=== PATIENT | female | born 1985 | race Caucasian/White ===

== ENCOUNTER → 2016-12-30 | Outpatient (CLI) | payer OTHER | LOC: RAD 14:57 | DX: M54.5 Low back pain (principal); M25.552 Pain in left hip; M25.551 Pain in right hip ==

== ENCOUNTER → 2018-07-20 | Outpatient (CLI) | payer OTHER | LOC: SPEECH 08:32 → RAD 08:32 | DX: K21.9 Gastro-esophageal reflux disease without esophagitis (principal); F45.8 Other somatoform disorders ==

== ENCOUNTER → 2018-11-09 | Outpatient (CLI) | payer OTHER ==
[~2018-11-09] VITALS: Ht 170.2 cm; Wt 113.4 kg
[~2018-11-09] MED LIST: ATIVAN0.5 MG PO; CENTRUM SILVER1 EAC4 PO; FLONASE 0.05%50 MCG NASAL; NORCO 7.5-3251 EACH PO; OMEPRAZOLE40 MG PO; PHENTERMINE H37.5 M1 PO; TIZANIDINE HCL6 MG PO; WELLBUTRIN SR150 MG PO; ZYRTEC10 M5 PO
--- NOTE | 2018-11-11 16:06 | PATH ---
[facility] [address] [place] [address] PATHOLOGY RPT PROCEDURE Name: DWAINBRADY Room #: REG [facility].#: [id number] ������������������ Admission: 11/09/18 ������������������ Date of : 81 Discharge: Report #: [id number] Path Case #: [id number] [facility] Accession Number: [id number] . 01 Material submitted: . esophagus - BIOPSY ESOPHAGUS RULE OUT EOE . 01 Clinical history: . Dysphagia Vertical sleeve gastrectomy rule out EOE . 02 Diagnosis: Squamous mucosa, esophagus, rule out eosinophilic esophagitis, endoscopic biopsy: - Mild active esophagitis and changes compatible with reflux esophagitis. - No increase in intraepithelial eosinophils. - Negative for intestinal metaplasia or dysplasia. . (IUV:mml; 11/11/2018) QLM/11/11/2018 . 02 Electronically signed: . Britney Bo MD, Pathologist NPI- [id number] . 01 Gross description: . The specimen is received in formalin, labeled "Brady Montalvo, BX esophagus" and consists of multiple fragments of mcleod-lucas tissue measuring 0.8 x 0.7 x 0.3 cm in aggregate which are entirely submitted in A1. (SDY; 11/10/2018) SYU/SYU . 02 Pathologist provided ICD-10: K21.0 . 02 CPT . 713540 Specimen Comment: A courtesy copy of this report has been sent to Specimen Comment: [phone]. Specimen Comment: Report sent to Performed at: [address], [place], [place] [id number] MD Benjamin Quintanilla MD Phone: [phone] Performed at: [address] [id number] [address] [address] PATHOLOGY RPT PROCEDURE Name: BRADY MONTALVO Room #: REG CLFlorinda Almeida#: [id number] ������������������ Admission: 11/09/18 ������������������ Date of : 81 Discharge: Report #: [id number] Path Case #: [id number] MD Britney Bo MD Phone: [phone]
== END | disposition home or self-care (01) ==
LOC: GI 08:10
DX: K21.0 Gastro-esophageal reflux disease with esophagitis (principal); K44.9 Diaphragmatic hernia without obstruction or gangrene; Z98.84 Bariatric surgery status; F32.9 Major depressive disorder, single episode, unspecified; F41.9 Anxiety disorder, unspecified; F17.210 Nicotine dependence, cigarettes, uncomplicated; Z79.899 Other long term (current) drug therapy; Z98.890 Other specified postprocedural states; Z88.8 Allergy status to other drugs, medicaments and biological substances; Z79.891 Long term (current) use of opiate analgesic
CPT/HCPCS: 62110; 62900

== ENCOUNTER → 2019-02-25 | Outpatient (CLI) | payer OTHER | LOC: CAT 11:30 | DX: J34.2 Deviated nasal septum (principal); J34.3 Hypertrophy of nasal turbinates; J32.0 Chronic maxillary sinusitis; J32.2 Chronic ethmoidal sinusitis; J32.1 Chronic frontal sinusitis ==

== ENCOUNTER → 2019-04-28 | Outpatient (CLI) | payer OTHER | LOC: MRI 14:28 | DX: M48.061 Spinal stenosis, lumbar region without neurogenic claudication (principal); M12.88 Other specific arthropathies, not elsewhere classified, other specified site; M51.26 Other intervertebral disc displacement, lumbar region; M51.27 Other intervertebral disc displacement, lumbosacral region; M25.78 Osteophyte, vertebrae; M48.07 Spinal stenosis, lumbosacral region; M51.36 Other intervertebral disc degeneration, lumbar region; M25.552 Pain in left hip ==

== ENCOUNTER → 2019-05-31 | Outpatient (CLI) | payer OTHER ==
[~2019-05-31] VITALS: Ht 154.9 cm; Wt 113.4 kg
[~2019-05-31] MED LIST changes: +DULOXETINE HCL60 MG PO; +PROTONIX40 M4 PO; +SINGULAIR 10 MG10 M1 PO; +TRAMADOL 50 MG50 MG PO; +TRAZODONE HCL100 MG PO
[2019-05-31 13:35] VITALS: BP 128/86
--- NOTE | 2019-05-31 13:57 | NUR ---
Pain Clinic Assessment: 1. History of Osteoarthritis: HIPS NECK History of Rheumatoid Arthritis: DENIES 2. Height: 5 ft. 1 in. 154.9 cm. Weight: 250.0 lb. oz. 113.400 kg. Patient's BMI: 47.3 3. Vital Signs: BP: 128/86 Pulse: 74 Resp: 16 Temp: 02 Sat: 100 ECG Mon: 4. Pain Intensity: 8 5. Fall Risk: Dizziness: Y Needs help standing or walking: N Fallen in the last 3 months: N Fall risk comments: 6. Patient on Blood Thinner: None 7. History of Hypertension: N 8. Opioid Therapy greater than 6 weeks: Y Opiate Contract Signed: 9. Risk Assessment Tool Provided: 10. Functional Assessment Tool: 11. Recreational Drug Use: Current within past 3 mos Drug Type: MJ Tobacco Use: Current Every Day Smoker Tobacco Type: Cigarettes Amount or Packs/day: 0.5 How Many Years: 15 Alcohol Use: Yes Frequency: Weekly Quant: SOBER [employer]QU[employer] 80 DAYS; HAD BEER THIS WEEKEND
== END ==
LOC: PAIN 06:59
DX: M47.816 Spondylosis without myelopathy or radiculopathy, lumbar region (principal); R53.81 Other malaise; F32.9 Major depressive disorder, single episode, unspecified; F17.200 Nicotine dependence, unspecified, uncomplicated; Z79.899 Other long term (current) drug therapy